=== PATIENT | male | born 2000 | race Caucasian/White ===

== ENCOUNTER 2022-05-01 00:06 | Emergency (ER) | payer BC ==
--- NOTE | 2022-05-01 01:57 | ED ---
Wound/Laceration HPI - General Chief Complaint: Wound/Laceration Stated Complaint: stepped on nail Time Seen by Provider: 05/01/22 01:13 Source: patient, family Mode of arrival: ambulatory Limitations: no limitations - History of Present Illness Initial Comments: This patient is a 22-year-old man who presents to have evaluation of a puncture wound to the plantar aspect of the left foot. Patient states she was walking with flip-flops and stepped on a nail that went through the flip-flop into his foot. He he pulled the nail out and then came here to have his tetanus shot updated. The patient denies significant pain. No bleeding. -: hour(s) Extremity Location: Left: Foot Place: outdoors Patient Tetanus UTD: No Context: accidental Associated Symptoms: none - Related Data Previous Rx's Medication Instructions Recorded Cephalexin [Keflex] 500 mg PO Q6HR #28 cap 05/01/22 Ciprofloxacin HCl [Cipro] 500 mg PO Q12HR #14 tablet 05/01/22 Allergies Allergy/AdvReac Type Severity Reaction Status Date / Time No Known Allergies Allergy Verified 05/01/22 00:10 Review of Systems ROS Statement: Those systems with pertinent positive or pertinent negative responses have been documented in the HPI. ROS Other: All systems not noted in ROS Statement are negative. Constitutional: Denies: fever Skin: Reports: as per HPI, other (Puncture wound) Neurological: Denies: weakness, numbness, paresthesias Hematological/Lymphatic: Denies: easy bleeding Past Medical History Past Medical History: No Reported History History of Any Multi-Drug Resistant Organisms: None Reported Past Psychological History: Anxiety Smoking Status: Never smoker Past Alcohol Use History: None Reported Past Drug Use History: None Reported General Exam Limitations: no limitations General appearance: alert, in no apparent distress Skin exam: Present: warm, dry, normal color, other (Puncture wound to the plantar aspect of the left foot.) Course Vital Signs 05/01/22 00:06 Temperature 98.6 F Pulse Rate 73 Respiratory 22 Rate O2 Sat by Pulse 98 Oximetry Disposition Clinical Impression: Puncture wound Disposition: HOME SELF-CARE Condition: Good Instructions (If sedation given, give patient instructions): Puncture Wound in the Foot (ED) Prescriptions: Ciprofloxacin HCl [Cipro] 500 mg PO Q12HR #14 tablet Cephalexin [Keflex] 500 mg PO Q6HR #28 cap Is patient prescribed a controlled substance at d/c from ED?: No Referrals: None,Stated [Primary Care Provider] - 1-2 days Time of Disposition: 02:00
[2022-05-01] MEDS ORDERED: CEPHALEXIN 500 MG CAP PO STA (01:58)
[2022-05-01] MEDS ORDERED: LEVOFLOXACIN 500 MG TAB PO STA (01:58)
[2022-05-01] MEDS ORDERED: DIPH,PERTUS(ACELL)TETVAC-LF 0.5 ML VIAL IM ONE (01:58)
[2022-05-01 02:19] VITALS: BP 131/88; PULSE 75; RESP 18; TEMP 97.8
--- NOTE | 2022-05-01 02:38 | XR ---
EXAM: XR Left Foot Complete, 3 or More Views CLINICAL HISTORY: ITS.REASON XR Reason: puncture wound possible FB TECHNIQUE: Frontal, lateral and oblique views of the left foot. COMPARISON: No relevant prior studies available. FINDINGS: Bones/joints: Unremarkable. No acute fracture. No dislocation. Soft tissues: No radiopaque foreign body identified. No obvious soft tissue swelling. No radiopaque foreign body. IMPRESSION: No radiopaque foreign body identified.
== END 2022-05-01 02:19 | disposition home or self-care (01) ==
LOC: EC 00:06
DX: S91.332A Puncture wound without foreign body, left foot, initial encounter (principal); W45.0XXA Nail entering through skin, initial encounter
CPT/HCPCS: 90715